=== PATIENT | female | born 1955 | race Caucasian/White ===

== ENCOUNTER → 2018-03-28 | Outpatient (CLI) | payer MEDICARE, BC | LOC: M.RAD 12:56 | DX: Z12.31 Encounter for screening mammogram for malignant neoplasm of breast (principal) ==

== ENCOUNTER → 2019-04-19 | Outpatient (CLI) | payer MEDICARE, BC, MEDICAID | LOC: M.RAD 04-18 15:00 | DX: Z12.31 Encounter for screening mammogram for malignant neoplasm of breast (principal) ==